=== PATIENT | female | born 1975 | race Two or more races ===

== ENCOUNTER 2016-10-08 14:18 | Emergency (ER) | payer OTHER ==
[2016-10-08 14:21] VITALS: BP 137/85; PULSE 96; TEMP 98; BMI 28.3
[2016-10-08] MEDS ORDERED: IBUPROFEN 600 MG TABLET (FP) PO ONE ×2 (15:10→15:14)
--- NOTE | 2016-10-08 15:10 | PDOC ---
History of Present Illness - General Chief Complaint: Injury Stated Complaint: INJURY Time Seen by Provider: 10/08/16 14:32 History Source: Patient Exam Limitations: No Limitations - History of Present Illness Initial Comments: 10/08/16 14:57 CHIEF COMPLAINT: Right ankle injury HISTORY OF PRESENT ILLNESS: Patient is a 41-year-old female denies any significant medical history currently on no medication reports for evaluation of injury to right ankle inversion sustained last evening when getting out of the car. Placed an sy wrap and tiger balm on. Now with increased pain and swelling to right lateral foot and ankle. REVIEW OF SYSTEMS: GENERAL: Afebrile, A&O x3 RESPIRATORY: No cough, wheezing, or hemoptysis. CARDIAC: No CP or SOB MUSCULOSKELETAL: Pain to lateral foot and ankle pain. SKIN : No erythema, no deformity. Edema and bruising noted to the right lateral foot. NEUROLOGICAL: Denies any numbness or tingling. PHYSICAL EXAM: GENERAL: The patient is awake, alert, and fully oriented, in no acute distress. HEAD: Normal with no signs of trauma. RESPIRATORY: Lungs clear bilaterally no rhonchi, rales, or wheezes CARDIAC: S1-S2 audible, no murmur rub or gallop EXTREMITIES: Decreased range of motion to [right] ankle related to pain, no crepitus . No pain to superior or inferior patella. Negative drop test. Negative posterior leg test. No joint laxity noted, mild ecchymosis with edema noted to right lateral foot, no pain to lateral or medial malleolus. Pain on palpation noted to dorsum of right foot. +3 popliteal pulse. Negative Homans sign. No calf pain or tenderness, no erythema or edema. MUSCULOSKELETAL: No spinal point tenderness. No pain with plantar flexion, achilles intact. - Anterior drawer est. SKIN: Warm, Dry, normal turgor, no erythema, edema and bruising to dorsum of right foot Past History - Past Medical History Allergies/Adverse Reactions: Allergies Allergy/AdvReac Type Severity Reaction Status Date / Time No Known Allergies Allergy Verified 10/08/16 14:18 Home Medications: Ambulatory Orders Oxycodone HCl/Acetaminophen [Percocet 5-325 mg Tablet] 1 - 2 tab PO Q6H #20 tab MDD 8 10/08/16 Other medical history: none - Psycho/Social/Smoking Cessation Hx Anxiety: No Suicidal Ideation: No Smoking Status: No Smoking History: Never smoked Have you smoked in the past 12 months: No Number of Cigarettes Smoked Daily: 2 Information on smoking cessation initiated: No 'Breaking Loose' booklet given: 09/21/15 Hx Alcohol Use: No Drug/Substance Use Hx: No Substance Use Type: None *Physical Exam - Vital Signs Last Vital Signs Temp Pulse Resp BP Pulse Ox 98.0 F 96 H 18 137/85 100 10/08/16 14:19 10/08/16 14:19 10/08/16 14:19 10/08/16 14:19 10/08/16 14:19 Procedures - Splinting Splint Location: Right: Ankle Pre-Proc Neuro Vasc Exam: normal Hand-Made Type: orthoglass Splint Type: Yes: Short Leg Post-Proc Neuro Vasc Exam: normal Sy Bandage: 3" Complications: No Post splint xray: No Progress: 10/08/16 16:14 Crutches for non weight bearing status. ED Treatment Course - RADIOLOGY Radiology Studies Ordered: Category Date Time Status ANKLE & FOOT-RIGHT* [RAD] Stat Radiology 10/08/16 14:57 Ordered Medical Decision Making - Medical Decision Making 10/08/16 15:10 A/P : Right ankle injury. Urine sent. 10/08/16 16:15 X-ray with distal fibular fracture slightly widened mortise. See procedure note Follow-up with orthopedics, nonweightbearing I discussed the physical exam findings, ancillary test results and final diagnoses with the patient. I answered all of the patient's questions. The patient was satisfied with the care received and felt comfortable with the discharge plan and treatment plan. The patient will call to arrange follow-up and will return to the Emergency Department with any new, persistent or worsening symptoms. *DC/Admit/Observation/Transfer Diagnosis at time of Disposition: Fracture of distal fibula Qualifiers: Encounter type: initial encounter Fracture type: closed Fracture morphology: unspecified fracture morphology Laterality: right Qualified Code(s): S82.831A - Other fracture of upper and lower end of right fibula, initial encounter for closed fracture - Discharge Dispostion Disposition: HOME Condition at time of disposition: Good Admit: No - Prescriptions Prescriptions: Oxycodone HCl/Acetaminophen [Percocet 5-325 mg Tablet] 1 - 2 tab PO Q6H #20 tab MDD 8 - Referrals Referrals: Cristopher Millan MD [Staff Physician] - - Patient Instructions Additional Instructions: 1. Please return to the emergency department with any redness, swelling, increased pain, or any other concerns. 2. Keep splint on. 3. Please follow up in the office of Dr. Millan within a week if pain persists. 4. No weightbearing 5. Ice and elevate when at rest. 6. Motrin for minor pain
== END 2016-10-08 16:36 | disposition home or self-care (01) ==
LOC: JERFT 14:18
PROC: 2W3LX1Z Immobilization of Right Lower Extremity using Splint (ICD-10-PCS; principal; 2016-10-08)
DX: S82.831A Other fracture of upper and lower end of right fibula, initial encounter for closed fracture (principal); X50.1XXA Overexertion from prolonged static or awkward postures, initial encounter; V48.4XXA Person boarding or alighting a car injured in noncollision transport accident, initial encounter; Y92.488 Other paved roadways as the place of occurrence of the external cause; Y93.89 Activity, other specified; Y99.8 Other external cause status
CPT/HCPCS: 29515; 73610-TC-RT; 73630-TC-RT; 84703; 99281-25

== ENCOUNTER 2016-10-20 06:23 | Day surgery (SDC) | payer OTHER ==
[2016-10-19 11:46] VITALS: BMI 28.9
[2016-10-20] MEDS ORDERED: MIDAZOLAM HCL 2 MG/2 ML SINGLE DOSE VIAL ONE ×2 (06:57)
[2016-10-20] MEDS ORDERED: PROPOFOL 20 ML ONE (06:57)
[2016-10-20] MEDS ORDERED: LIDOCAINE HCL/PF 2% SDV 5ML VIAL ONE (07:00)
[2016-10-20] MEDS ORDERED: ROPIVACAINE HCL 0.5% 30ML VIAL ONE (07:04)
[2016-10-20] MEDS ORDERED: DEXAMETHASONE SOD PHOSPHATE/PF 10 MG/ML SDV ONE (07:05)
[2016-10-20] MEDS ORDERED: ceFAZolin SODIUM 1 GM VIAL ONE (08:02)
[2016-10-20] MEDS ORDERED: DEXAMETHASONE SOD PHOSPHATE 4 MG/1 ML VIAL ONE (08:05)
[2016-10-20] MEDS ORDERED: ONDANSETRON 4 MG/2 ML VIAL ONE (08:05)
[2016-10-20] MEDS ORDERED: SCOPOLAMINE HYDROBROMIDE 1 PATCH PATCH.TD72 ONE (08:07)
[2016-10-20] MEDS ORDERED: KETOROLAC TROMETHAMINE 30 MG/1 ML VIAL ONE ×2 (09:22→12:31)
[2016-10-20] MEDS ORDERED: PROMETHAZINE HCL 25 MG/1 ML VIAL IVPUSH PRN (09:59)
[2016-10-20] MEDS ORDERED: LACTATED RINGERS SOLUTION 1,000 ML IV SCH (10:00)
[2016-10-20] MEDS ORDERED: oxyCODONE HCL 5 MG TABLET PO PRN (11:08)
[2016-10-20 12:06] VITALS: BP 107/75; PULSE 79; TEMP 97.8
--- NOTE | 2016-10-20 13:50 | OP ---
DATE OF OPERATION: 10/20/2016 PREOPERATIVE DIAGNOSIS: Right ankle fracture. POSTOPERATIVE DIAGNOSIS: Right ankle fracture. PROCEDURE: Right ankle open reduction and internal fixation, as well as open reduction and internal fixation of syndesmosis. SURGEON: Paxton Shrestha MD AIR COMPRESSOR OPERATOR: Madison Stover, whose skillful assistance was necessary for the safe and timely performance of this procedure. Ms. Stover was able to provide limb positioning, retraction, as well as assist in the fracture reduction and insertion of orthopedic hardware. ANESTHESIA TYPE: Regional, general, plus local. POSTOPERATIVE CONDITION: Stable. COMPLICATIONS: None. IMPLANTS: Arthrex distal fibular plate along with TightRope x1. INDICATIONS: This is a pleasant woman who suffered an ankle fracture. Radiographs in the office as well as in the emergency room demonstrated an unstable-type fracture. Treatment options including nonoperative versus operative management were discussed. Operative treatment was recommended given the unstable nature of the fracture. Operative risks were reviewed in detail including bleeding, infection, neurovascular injury, need for further surgery, postoperative pain and stiffness, nonunion, malunion, hardware cut-out or failure. We discussed medical risks such as heart attack, stroke, DVT, PE and . We discussed the use of perioperative antibiotic prophylaxis as well as perioperative DVT prophylaxis. We reviewed the postoperative rehabilitation protocol and limited weightbearing. I addressed all of the patient's questions as well as those of her . They voiced understanding and elected to proceed. DESCRIPTION OF PROCEDURE: The patient was brought to the operating room after administration of a regional block in the preoperative holding area. The right lower extremity was then prepped and draped in the usual sterile fashion. A preoperative dose of antibiotics was given and the usual timeout procedure was performed. At this point, the incision was marked out over the distal fibula. Physical examination was performed demonstrating instability in the medial collateral direction of the ankle joint. The limb was elevated and tourniquet was attempted to be inflated. However, the O-ring seal was leaking. Therefore, it was decided to use the Esmarch bandage as a tourniquet. This was wrapped several times around the limb and then secured to provide the tourniquet function. The incision was then carried down through skin and through subcutaneous tissue proximally and more distally directly over the malleolus, full thickness, down to bone. Blunt spreading was used to then expose the fibula throughout the incision site. The fracture site was now identified. Utilizing a [place] as well as a curette and rongeur, it was debrided of any loose debris. It was then irrigated. A fracture reduction clamp was now placed and the fracture was manipulated into anatomic alignment. A radiograph was taken to ensure anatomic reduction and this was satisfactory. A was now drilled, initially using a 3.5 drill bit, then a 2.5 drill bit, followed by countersinking, and then the screw was inserted into the [id number] direction. This fixated the fracture. The fracture reduction clamp was now removed and the fracture was stable. A neutralization plate was then chosen and then applied to the lateral aspect of the fibula. Radiographs were used to confirm fracture reduction and hardware placement, and both were satisfactory. The plate was now affixed, first using a tack and then distally fixated using 2.7 locking screws. More proximally, three 3.5-mm cortical screws were inserted in standard fashion. At this point, the entire construct was examined fluoroscopically as well as visually. Both fracture reduction and hardware placement were satisfactory. There was still some slight medial widening appreciated in the mortise and an external rotation stress view demonstrated that there was persistent instability in the ankle joint. At this time, it was decided to place a TightRope device. A 3.7-mm drill bit was now drilled across the fibula and then across the tibia, exiting anteromedially. Drill bit trajectory was confirmed fluoroscopically prior to completing the hole. The TightRope device was now passed through and then toggled and cinched down, securing the syndesmosis. The ankle was now again examined radiographically and now, the mortise was maintained. Next, stress test was performed and no additional widening was noted. At this point, the wound was copiously irrigated. The deep tissue was approximated using 0 Vicryl. The subcutaneous tissue was approximated using 3-0 Vicryl. The skin was closed using a running 3-0 nylon. The tourniquet was now let down. The patient was placed into a well-padded short-leg cast. She was extubated and transferred to the recovery room in stable condition. PAXTON SHRESTHA M.D. [id number]
== END 2016-10-20 12:30 | disposition home or self-care (01) ==
LOC: FASU 06:23
PROVIDERS: ATTEND Orthopaedic Surgery Sports Medicine
PROC: 0SSF0ZZ Reposition Right Ankle Joint, Open Approach (ICD-10-PCS; 2016-10-20)
PROC: 0QSB04Z Reposition Right Lower Femur with Internal Fixation Device, Open Approach (ICD-10-PCS; principal; 2016-10-20 08:27)
DX: S82.64XA Nondisplaced fracture of lateral malleolus of right fibula, initial encounter for closed fracture (principal); S93.431A Sprain of tibiofibular ligament of right ankle, initial encounter; X58.XXXA Exposure to other specified factors, initial encounter; Y93.9 Activity, unspecified; Y92.9 Unspecified place or not applicable
CPT/HCPCS: 73610-TC-RT; 76001-TC; 84703; 94760

== ENCOUNTER 2018-06-28 19:52 | Emergency (ER) | payer OTHER ==
[2018-06-28 19:58] VITALS: BMI 28.1
--- NOTE | 2018-06-28 19:58 | PDOC ---
Rapid Medical Evaluation Time Seen by Provider: 06/28/18 19:57 Medical Evaluation: Allergies Allergy/AdvReac Type Severity Reaction Status Date / Time No Known Drug Allergies Allergy Verified 10/19/16 11:37 06/28/18 19:57 I performed a brief in-person evaluation of this patient. Chief complaint: Abdominal pain Pertinent physical exam findings: RLQ tenderness with guarding I have ordered the following: CBC, CMP, lipase, UA/culture, urine preg Patient will proceed to the ED for further evaluation. Discharge Disposition - Diagnosis Abdominal pain - Referrals - Patient Instructions - Post Discharge Activity
[2018-06-28 20:29] LABS: BASO % 0.6 % (0-2.0); EOS % 0.4 % (0-4.5); HEMATOCRIT 43.2 % (32.4-45.2); HEMOGLOBIN 14.9 GM/dL (10.7-15.3); LYMPH % 26.2 % (8-40); MCH 32.7 pg (25.7-33.7); MCHC 34.5 g/dl (32.0-36.0); MEAN CELL VOLUME 94.8 fl (80-96); MEAN PLT VOLUME 9.6 fl (7.5-11.1); MONO % 7.7 % (3.8-10.2); NEUT % 65.1 % (42.8-82.8); PLATELET COUNT 177 K/MM3 (134-434); RBC 4.55 M/mm3 (3.60-5.2); RDW 13.5 % (11.6-15.6)
[2018-06-28 20:41] LABS: URINE APPEARANCE CLEAR; URINE BILIRUBIN NEGATIVE (<2.0 mg/dL); URINE COLOR COLORLESS; URINE GLUCOSE (UA) NEGATIVE (NEGATIVE); URINE KETONE NEGATIVE (NEGATIVE); URINE LEUK ESTERASE NEGATIVE (NEGATIVE); URINE NITRITE NEGATIVE (NEGATIVE); URINE PROTEIN NEGATIVE (NEGATIVE); URINE UROBILINOGEN NEGATIVE mg/dL (0.2-1.0)
[2018-06-28] MEDS ORDERED: SODIUM CHLORIDE 1,000 ML IV STA (20:49)
[2018-06-28] MEDS ORDERED: ACETAMINOPHEN 1000 MG/100 ML VIAL (NON FORMULARY) IVPB ONE (20:49)
--- NOTE | 2018-06-28 20:49 | PDOC ---
History of Present Illness - General Chief Complaint: Pain Stated Complaint: RIGHT SIDE PAIN Time Seen by Provider: 06/28/18 19:57 History Source: Patient Exam Limitations: No Limitations - History of Present Illness Initial Comments: 06/28/18 20:45 Pt is a 42yo F with no significant PMH presenting to ED with complaints of RLQ abdominal pain that started this morning. The pain is 5/10, does not radiate, experienced with walking, driving and pressing on the abdomen, not experienced when lying down. 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 She denies n/v/d, fevers, chills , urinary symptoms, hematuria, vaginal discharge, vaginal bleeding. She has had pain like this before many years ago but it was worse and states that her tests were negative. LMP was June 03. PMD: Long PMH: none PSH: abdominoplasty 15 years ago Meds: none Allergies: nkda Past History - Past Medical History Allergies/Adverse Reactions: Allergies Allergy/AdvReac Type Severity Reaction Status Date / Time No Known Drug Allergies Allergy Verified 06/28/18 19:58 Home Medications: Ambulatory Orders NK [No Known Home Medication] 06/28/18 Anemia: No Asthma: No Cancer: No Cardiac Disorders: No CVA: No COPD: No CHF: No Dementia: No Diabetes: No GI Disorders: No Disorders: No HTN: No Hypercholesterolemia: No Liver Disease: No Seizures: No Thyroid Disease: No - Surgical History Abdominal Surgery: Yes ("TUMMY TUCK") Appendectomy: No Cardiac Surgery: No Cholecystectomy: No Lung Surgery: No Neurologic Surgery: No Orthopedic Surgery: No - Suicide/Smoking/Psychosocial Hx Smoking Status: No Smoking History: Never smoked Have you smoked in the past 12 months: No Number of Cigarettes Smoked Daily: 2 If you are a former smoker, when did you quit?: 2 years ago 'Breaking Loose' booklet given: 09/21/15 Hx Alcohol Use: Yes (SOCIALLY) Drug/Substance Use Hx: No Substance Use Type: Alcohol Hx Substance Use Treatment: No Review of Systems - Review of Systems Constitutional: No: Chills, Fever, Weakness HEENTM: No: Symptoms Reported Respiratory: No: Cough, Shortness of Breath Cardiac (ROS): No: Chest Pain, Lightheadedness, Palpitations, Syncope ABD/GI: Yes: See HPI, Abdominal cramping. No: Constipated, Diarrhea, Nausea, Poor Appetite, Rectal Bleeding, Vomiting, Tarry Stools : No: Burning, Dysuria, Frequency, Flank Pain, Hematuria Musculoskeletal: No: Back Pain, Joint Pain, Neck Pain Integumentary: No: Symptoms Reported Neurological: No: Headache, Numbness, Tingling *Physical Exam - Vital Signs Last Vital Signs Temp Pulse Resp BP Pulse Ox 98.0 F 100 H 18 143/88 99 06/28/18 19:55 06/28/18 19:55 06/28/18 19:55 06/28/18 19:55 06/28/18 19:55 - Physical Exam General Appearance: Yes: Nourished, Appropriately Dressed. No: Apparent Distress HEENT: positive: EOMI, RATNA, Normal ENT Inspection Neck: positive: Trachea midline, Supple Respiratory/Chest: positive: Lungs Clear, Normal Breath Sounds Cardiovascular: positive: Regular Rhythm, Regular Rate Vascular Pulses: Carotid (R): 2+, Carotid (L): 2+, Dorsalis-Pedis (R): 2+, Doralis-Pedis (L): 2+ Female Pelvic Exam: positive: normal external exam. negative: CMT, adnexal tenderness, vaginal bleeding Gastrointestinal/Abdominal: positive: Normal Bowel Sounds, Soft, Tenderness (RLQ ). negative: Guarding, Rebound, Hernia, Mass Musculoskeletal: negative: CVA Tenderness Extremity: positive: Normal Capillary Refill. negative: Pedal Edema, Swelling Integumentary: positive: Normal Color, Dry, Warm Neurologic: positive: angle bender II-XII NML intact, Fully Oriented, Alert, Normal Mood/ Affect, Normal Response, Motor Strength 5/5 Moderate Sedation - Procedure Monitoring Vital Signs: Procedure Monitoring Vital Signs Temperature 98.0 F 06/28/18 19:55 Pulse Rate 100 H 06/28/18 19:55 Respiratory Rate 18 06/28/18 19:55 Blood Pressure 143/88 06/28/18 19:55 O2 Sat by Pulse Oximetry (%) 99 06/28/18 19:55 ED Treatment Course - LABORATORY CBC & Chemistry Diagram: 06/28/18 20:14 06/28/18 20:14 - ADDITIONAL ORDERS Additional order review: 06/28/18 20:14 RBC 4.55 MCV 94.8 MCHC 34.5 RDW 13.5 MPV 9.6 Neutrophils % 65.1 D Lymphocytes % 26.2 D Monocytes % 7.7 Eosinophils % 0.4 D Basophils % 0.6 Medical Decision Making - Medical Decision Making 06/28/18 20:48 Pt is a 42yo F with no significant PMH presenting to ED with complaints of RLQ abdominal pain that started this morning. The pain is 5/10, does not radiate, experienced with walking, driving and pressing on the abdomen, not experienced when lying down. 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 She denies n/v/d, fevers, chills , urinary symptoms, hematuria, vaginal discharge, vaginal bleeding. She has had pain like this before many years ago but it was worse and states that her tests were negative. LMP was June 03. Vitals: HR 100 PE: RLQ tenderness, no mass, no hernia. No CMT or adnexal tenderness Ddx includes but not limited to appendicitis, TOA, Torsion, PID, nephrolithiasis , pyelonephritis, colitis, ectopic , cyst -labs ordered by E -CTAP -IV tylenol and iv fluids. Labs wnl, pt not . Will proceed to CT. CT shows 3.6 R ovarian cyst. Fibroid uterus. No appendicitis or acute pathology. Low suspicion for ovarian torsion given constant chronicity of pain. However pt will need to f/u with FELLMONGERING MACHINE OPERATOR Pt is hemodynamically stable, will give referral to FELLMONGERING MACHINE OPERATOR. DC home. Given return precautions. *DC/Admit/Observation/Transfer Diagnosis at time of Disposition: Abdominal pain Qualifiers: Abdominal location: right lower quadrant Qualified Code(s): R10.31 - Right lower quadrant pain Ovarian cyst Qualifiers: Laterality: right Qualified Code(s): N83.201 - Unspecified ovarian cyst, right side Fibroid uterus Qualifiers: Uterine leiomyoma location: unspecified location Qualified Code(s): D25.9 - Leiomyoma of uterus, unspecified - Discharge Dispostion Disposition: HOME Condition at time of disposition: Good - Referrals Referrals: Bakari Long MD [Primary Care Provider] - Joseph Murrieta MD [Staff Physician] - - Patient Instructions Printed Discharge Instructions: DI for Uterine Fibroids, DI for Ovarian Cyst, DI for Abdominal Pain-Adult Additional Instructions: You were seen in the emergency room today for abdominal pain on the right side. The CT scan shows that you have fibroids and an ovarian cyst. This may be causing your pain. I recommend making an appointment with an FELLMONGERING MACHINE OPERATOR. You can see Dr. Murrieta [phone]. Please try to make an appointment next week. You can take tylenol or ibuprofen for the pain as needed. Please come back to the emergency room if pain gets worse, you start vomiting, you develop fever, you have vaginal bleeding or if any new concerning symptom develops. Thank you Print Language: [place] ISLANDER - Post Discharge Activity
[2018-06-28] MEDS ORDERED: ACETAMINOPHEN INJECTION 100 ML IVPB ONE (20:51)
--- NOTE | 2018-06-28 20:52 | PDOC ---
Attending Attestation - HPI HPI: 06/28/18 21:08 The patient is a 42 year old female, with no significant past medical history, who presents to the emergency department with, RUQ pain described as 5/10 worsened with movement and pressing on the location. She endorses holding her urine in for a significant amount of time yesterday prior to the onset of her symptoms. She denies recent fevers, chills, headache or dizziness. She denies recent nausea, vomit, diarrhea or constipation. She denies recent dysuria, frequency, urgency or hematuria. She denies recent chest pain or shortness of breath. Allergies: NKDA Past surgical history: abdominoplasty 15 years ago. LMP: June 03. <Ranjan Segura - Last Filed: 06/28/18 21:08> - Resident Resident Name: Maryann Domínguez - ED Attending Attestation I have performed the following: I have examined & evaluated the patient, The case was reviewed & discussed with the resident, I agree w/resident's findings & plan, Exceptions are as noted - HPI HPI: 06/29/18 00:05 Pain was gradual in onset, persistent, stable in intensity, non-episodic No associate nausea vomiting - Physicial Exam PE: 06/28/18 21:44 Agree with general exam as documented by resident NAD Palpable lower abdominal central mass w/o tenderness +focal TTP over RLQ, no guarding, no rebound, negative rosvig - Medical Decision Making 06/28/18 21:45 42F with focal TTP LLQ, exam unremarkable, OB/ pathology less likely, appy still on differential f/u labs f/u ct a/p 06/29/18 00:07 CT report with fibroid uterus, R sided ovarian cyst 3.6cm, no appy Consider cyst for etiology of R sided px Moderate risk for ovarian torsion based on size of cyst but clinical exam inconsistent with torsing/detorsing ovary DC home, close follow up with DIRECTOR ASSET, strict return instructions for emergent re -eval <Lex Sanford - Last Filed: 06/29/18 00:12> Attestations - Attestations 06/28/18 21:09 Documentation prepared by Ranjan Segura, acting as medical specialist for Lex Sanford MD. <Ranjan Segura - Last Filed: 06/28/18 21:08>
[2018-06-28 20:55] LABS: ALBUMIN 4.3 g/dl (3.4-5.0); ALK PHOS 79 U/L (45-117); ANION GAP 7 MMOL/L (8-16); BILIRUBIN,TOTAL 0.9 mg/dL (0.2-1); BLOOD UREA NITROGEN 11 mg/dL (7-18); CALCIUM 9.5 mg/dL (8.5-10.1); CHLORIDE 105 mmol/L (98-107); CO2 25 mmol/L (21-32); CREATININE 0.8 mg/dL (0.55-1.3); GLUCOSE,RANDOM 88 mg/dL (74-106); LIPASE 118 U/L (73-393); POTASSIUM 4.1 mmol/L (3.5-5.1); SGOT/AST 26 U/L (15-37); SGPT/ALT 39 U/L (13-61); SODIUM 137 mmol/L (136-145); TOT PROT 8.7 g/dl (6.4-8.2)
[2018-06-28 23:28] LABS: HCG,QUALITATIVE URINE NEGATIVE
[2018-06-29 00:40] VITALS: BP 138/80; PULSE 87; TEMP 98.3
== END 2018-06-29 00:39 | disposition home or self-care (01) ==
LOC: JER 19:52
PROC: 3E033NZ Introduction of Analgesics, Hypnotics, Sedatives into Peripheral Vein, Percutaneous Approach (ICD-10-PCS; principal; 2018-06-28)
DX: N83.201 Unspecified ovarian cyst, right side (principal); D25.9 Leiomyoma of uterus, unspecified
CPT/HCPCS: 36415; 74177-TC; 80053; 81003; 83690; 84703; 85025; 87086; 99283-25; J0131; J7030

== ENCOUNTER 2018-10-15 17:09 | Emergency (ER) | payer OTHER ==
[2018-10-15 17:15] VITALS: BP 151/70; PULSE 86; TEMP 98.3; BMI 29.0
--- NOTE | 2018-10-15 17:17 | PDOC ---
Rapid Medical Evaluation Chief Complaint: Back Pain Time Seen by Provider: 10/15/18 17:11 Medical Evaluation: Allergies Allergy/AdvReac Type Severity Reaction Status Date / Time No Known Drug Allergies Allergy Verified 06/28/18 19:58 10/15/18 17:12 I have performed a brief in-person evaluation of this patient. The patient presents with a chief complaint of: low back pain- using vacuum today.- took 2 tylenol no relief Pertinent physical exam findings: Low back pain. walks with mild limp/ list ot right I have ordered the following: UA/ Ucg The patient will proceed to the ED for further evaluation. 10/15/18 17:14 10/15/18 17:15 10/15/18 17:18 Discharge Disposition - Diagnosis Back pain - Referrals - Patient Instructions - Post Discharge Activity
[2018-10-15] MEDS ORDERED: KETOROLAC TROMETHAMINE 60 MG/2 ML VIAL ONE (17:26)
[2018-10-15] MEDS ORDERED: KETOROLAC TROMETHAMINE 60 MG/2 ML VIAL IM ONE (17:27)
[2018-10-15 17:33] LABS: URINE APPEARANCE CLEAR; URINE BILIRUBIN NEGATIVE (NEGATIVE); URINE COLOR YELLOW; URINE GLUCOSE (UA) NEGATIVE (NEGATIVE); URINE KETONE NEGATIVE (NEGATIVE); URINE LEUK ESTERASE NEGATIVE (NEGATIVE); URINE NITRITE NEGATIVE (NEGATIVE); URINE PROTEIN NEGATIVE (NEGATIVE)
[2018-10-15 17:36] LABS: HCG,QUALITATIVE URINE Negative
--- NOTE | 2018-10-15 17:38 | PDOC ---
History of Present Illness - General Chief Complaint: Back Pain Stated Complaint: BACK PAIN Time Seen by Provider: 10/15/18 17:11 History Source: Patient (lower back pain X 2 days) Exam Limitations: No Limitations - History of Present Illness Pain Location: reports: back Associated Symptoms (Fall): denies symptoms, chest pain, dizziness, nausea/ vomiting, trouble walking Past History - Past Medical History Allergies/Adverse Reactions: Allergies Allergy/AdvReac Type Severity Reaction Status Date / Time No Known Drug Allergies Allergy Verified 10/15/18 17:15 Home Medications: Ambulatory Orders Cyclobenzaprine HCl [Flexeril 10 mg] 10 mg PO BID 10 Days #20 tablet 10/15/18 Naproxen [EC-Naprosyn] 375 mg PO BID 15 Days #30 tablet. 10/15/18 Anemia: No Asthma: No Cancer: No Cardiac Disorders: No CVA: No COPD: No CHF: No Dementia: No Diabetes: No GI Disorders: No Disorders: No HTN: No Hypercholesterolemia: No Liver Disease: No Seizures: No Thyroid Disease: No - Surgical History Abdominal Surgery: Yes ("TUMMY TUCK") Appendectomy: No Cardiac Surgery: No Cholecystectomy: No Lung Surgery: No Neurologic Surgery: No Orthopedic Surgery: No - Suicide/Smoking/Psychosocial Hx Smoking Status: No Smoking History: Never smoked Have you smoked in the past 12 months: No Number of Cigarettes Smoked Daily: 2 If you are a former smoker, when did you quit?: 2 years ago 'Breaking Loose' booklet given: 09/21/15 Hx Alcohol Use: No Drug/Substance Use Hx: No Substance Use Type: Alcohol Hx Substance Use Treatment: No Review of Systems - Review of Systems Constitutional: No: Chills, Fever Respiratory: No: Shortness of Breath Cardiac (ROS): No: Chest Pain : No: Dysuria, Frequency, Flank Pain, Incontinence, Urgency Musculoskeletal: Yes: Back Pain, Muscle Pain. No: Gout, Joint Pain, Muscle Weakness, Neck Pain Neurological: No: Numbness, Paresthesia, Weakness, Unsteady Gait, Dizziness *Physical Exam - Vital Signs Last Vital Signs Temp Pulse Resp BP Pulse Ox 98.3 F 86 16 151/70 99 10/15/18 17:12 10/15/18 17:12 10/15/18 17:12 10/15/18 17:12 10/15/18 17:12 - Physical Exam General Appearance: Yes: Nourished Respiratory/Chest: positive: Lungs Clear, Normal Breath Sounds Cardiovascular: positive: Regular Rhythm, Regular Rate, S1, S2 Musculoskeletal: positive: Muscle Spasm (lumbar sacral parapsinal tenderness, spinal palpation normal) Extremity: positive: Normal Capillary Refill Neurologic: positive: [employer] II-XII NML intact, Fully Oriented, Alert, Normal Response, Motor Strength 08/19 ED Treatment Course - Medications Given in the ED: ED Medications Discontinued Medications Generic Name Dose Route Start Last Admin Trade Name Salnia PRN Reason Stop Dose Admin Ketorolac Tromethamine 60 mg 10/15/18 17:27 10/15/18 17:29 Toradol Injection - IM 10/15/18 17:28 60 mg ONCE ONE Administration Medical Decision Making - Medical Decision Making 43y/o F with chronic back pain, MRI confirmed herniated disc many years ago, opted for PT management Patient reports that she had not been going to PT sessions lately d/t no pain in the back until 2 days ago when she used her vacuum grave cleaner as weights and was twisting her body from side to side she woke up with pain denies b/b incontinence or saddle anesthesia, she has no UTI sx exam consistent with paraspinal tenderness in lumbar sacral region stable gait hypertensive but denies h/o HTN, CP, SOB or FLORES *DC/Admit/Observation/Transfer Diagnosis at time of Disposition: Elevated blood pressure reading without diagnosis of hypertension Back pain Qualifiers: Back pain location: low back pain Chronicity: chronic Back pain laterality: unspecified Sciatica presence: without sciatica Qualified Code(s): M54.5 - Low back pain - Discharge Dispostion Disposition: HOME Condition at time of disposition: Stable Decision to Admit order: No - Prescriptions Prescriptions: Cyclobenzaprine HCl [Flexeril 10 mg] 10 mg PO BID 10 Days #20 tablet Naproxen [EC-Naprosyn] 375 mg PO BID 15 Days #30 tablet.dr - Referrals Referrals: Bakari Long MD [Primary Care Provider] - - Patient Instructions Printed Discharge Instructions: DI for Back Strain or Sprain Additional Instructions: Your urine was normal today Please avoid offending movement that exacerbated back pain stretch before you exercise consult your PCP prior to starting exercise regime Take medication as prescribed Your blood pressure was also high today, please watch your salt intake, avoid processed foods and exercise follow up with your PCP for blood pressure check in one week Return to the ER if worsening symptoms occurs - Post Discharge Activity
== END 2018-10-15 17:54 | disposition home or self-care (01) ==
LOC: JERFT 17:09
PROC: 3E0233Z Introduction of Anti-inflammatory into Muscle, Percutaneous Approach (ICD-10-PCS; principal; 2018-10-15)
DX: M54.5 Low back pain (principal); R03.0 Elevated blood-pressure reading, without diagnosis of hypertension
CPT/HCPCS: 81003; 84703; 96372; 99281-25

== ENCOUNTER 2020-06-09 11:38 | Emergency (ER) | payer OTHER ==
[2020-06-09 11:47] VITALS: PULSE 86; TEMP 98.4; BMI 29.2
[2020-06-09 14:29] LABS: BASO % 0.5 % (0-2.0); EOS % 0.2 % (0-4.5); HEMOGLOBIN 13.2 GM/dL (10.7-15.3); LYMPH % 22.4 % (8-40); MCH 32.6 pg (25.7-33.7); MCHC 34.7 g/dl (32.0-36.0); MEAN PLT VOLUME 9.3 fl (7.5-11.1); MONO % 5.8 % (3.8-10.2); NEUT % 71.1 % (42.8-82.8); PLATELET COUNT 201 K/MM3 (134-434); RBC 4.04 M/mm3 (3.60-5.2); RDW 14.2 % (11.6-15.6); WHITE BLOOD COUNT 7.6 K/mm3 (4.0-10.0)
[2020-06-09 14:51] LABS: POTASSIUM 4.1 mmol/L (3.5-5.1)
[2020-06-09 14:53] LABS: ALBUMIN 3.8 g/dl (3.4-5.0); CALCIUM 9.2 mg/dL (8.5-10.1)
[2020-06-09 14:54] LABS: BLOOD UREA NITROGEN 12.7 mg/dL (7-18)
[2020-06-09 14:57] LABS: CREATININE 0.9 mg/dL (0.55-1.3)
[2020-06-09 14:58] LABS: BILIRUBIN,TOTAL 0.4 mg/dL (0.2-1); TOT PROT 7.6 g/dl (6.4-8.2)
[2020-06-09 15:20] VITALS: BP 177/97
== END 2020-06-09 15:22 | disposition home or self-care (01) ==
LOC: JER 11:38
DX: R42 Dizziness and giddiness (principal)
CPT/HCPCS: 36415; 80053; 84703; 85025; 93005; 93010; 99284-25